=== PATIENT | female | born 1985 | race Caucasian/White ===

== ENCOUNTER 2016-05-08 13:21 | Emergency (ER) | payer SELFPAY | END 2016-05-08 15:30 | disposition home or self-care (01) | LOC: ER1 13:21 | DX: J02.9 Acute pharyngitis, unspecified (principal); J05.10 Acute epiglottitis without obstruction; R05 Cough | CPT/HCPCS: 87081; 87880; 93005; 99283 ==

== ENCOUNTER 2020-10-04 15:33 | Emergency (ER) | payer OTHER ==
[~2020-10-04 15:33] MED LIST: BACTRIM DS TAB1 EACH PO; BACTROBAN OINT22 GM EXT
== END 2020-10-04 15:41 | disposition left against medical advice (07) ==
LOC: ER1 15:33
DX: Z53.21 Procedure and treatment not carried out due to patient leaving prior to being seen by health care provider (principal)